=== PATIENT | female | born 1985 | race Caucasian/White ===

== ENCOUNTER 2018-12-31 16:05 | Inpatient (IN) | payer OTHER ==
[~2018-12-31] VITALS: Ht 167.6 cm; Wt 129.0 kg
[2018-12-31 16:36] VITALS: BP 123/59; PULSE 89; RESP 18; Ht 167.6 cm; Wt 129.0 kg
[2018-12-31] MEDS ORDERED: PNV11TAB PO (16:43)
--- NOTE | 2018-12-31 16:44 | HP ---
Date/Time of Note Date/Time of Note DATE: 12/31/18 TIME: 16:41 OB - History Hx of Present Free Text/Dictation @37+wks GA no care Hx of DVT during Obese : 4 Para: 3 Care: None Ultrasounds: No ultrasounds Past Family/Social History * Past Medical, Surgical, Family and Obstetric Histories reviewed from chart. OB Admission Exam Vital Signs Vital Signs Vital Signs Date Temp Pulse Resp B/P (MAP) Pulse Ox O2 O2 Flow FiO2 Time Delivery Rate 12/31/18 97.8 89 18 123/59 16:36 (80) Physical Exam Abdomen: WNL Cervical Dilatation: None Effacement: 0% Station: Ballotable Membranes: Intact Heart Rate: 140's Accelerations: Accelerations Present Decelerations: No Decelerations Varibility: Moderate Contractions on Admission: None OB Assessment/Plan Reason for admission: observation Other Assessment: PMH Obesity DVT PSH denies Plan: Expectant Management Other plan: Perinatology consult Continuous monitoring U/A u/c Ultrasound WILMER KING M.D. Dec 31, 2018 16:44
== END 2018-12-31 19:54 | disposition left against medical advice (07) | DRG 832 ==
LOC: OBT 16:05 → L-D 16:07 → OBT 16:30 → L-D 16:30
PROVIDERS: ADMIT Obstetrics & Gynecology; ATTEND Obstetrics & Gynecology
PROC: 4A1HXCZ Monitoring of Products of Conception, Cardiac Rate, External Approach (ICD-10-PCS; principal; 2018-12-31)
DX: O22.33 Deep phlebothrombosis in pregnancy, third trimester (principal); I82.409 Acute embolism and thrombosis of unspecified deep veins of unspecified lower extremity; Z3A.37 37 weeks gestation of pregnancy; O99.213 Obesity complicating pregnancy, third trimester
CPT/HCPCS: 76815; 76818; 80053; 80307; 81001; 84560; 85025; 85384; 85610; 85730; 87086; G0463